=== PATIENT | female | born 1980 | race Caucasian/White ===

== ENCOUNTER 2019-03-17 17:24 | Emergency (ER) | payer BC ==
--- OUTSIDE RECORDS SUMMARY | 2019-03-17 17:26 | XMS REPORT ---
:1980 [facility] Address [address] [place] [address] Dr. Portillo. [address] [place] [id number] Care Team Providers Name Role Phone Unavailable Unavailable Unavailable Problems This patient has no known problems. Allergies, Adverse Reactions, Alerts This patient has no known allergies or adverse reactions. Medications This patient has no known medications.
[2019-03-17] MEDS ORDERED: dexAMETHasone 10 MG/ML VIAL ONE (18:33)
[2019-03-17] MEDS ORDERED: MORPHINE 4 MG/ML SYR ONE ×2 (18:34→20:11)
[2019-03-17] MEDS ORDERED: ONDANSETRON 4 MG/2 ML VIAL ONE (18:34)
[2019-03-17 18:40] LABS: Basophils % 0.8 % (0-1.3); MPV 7.6 fL (7.6-11.3); RBC Red Blood Cell Count 4.15 M/uL (3.86-4.86)
[2019-03-17] MEDS ORDERED: CLINDAMYCIN 600MG/D5W 600 MG/50 ML BAG IV ONE (19:09)
[2019-03-17 19:12] LABS: Potassium 3.3 mmol/L (3.5-5.1)
--- NOTE | 2019-03-17 20:00 | RAD REPORT ---
EXAM DESCRIPTION: CT - Soft Tissue Neck W/Contr CLINICAL HISTORY: right submandibular swelling and pain Pain and swelling to the neck COMPARISON: <Comparisons> TECHNIQUE All CT scans are performed using dose optimization technique as appropriate and may includ e automated exposure control or mA/KV adjustment according to patient size. FINDINGS: Inflammatory changes are present in the subcutaneous fat along the left aspect of the neck . The soft tissues surrounding the left parotid gland and submandibular glands appear edematous. Flui d is seen extending along the left aspect of the parapharyngeal fat with edematous fluid present with in the left piriform sinus. The left area epiglottic fold appears significantly thickened and edemato us. Multiple prominent lymph nodes are present along the jugular chain, greater on the left. The largest lymph node on the left measures 16 mm, however demonstrates a a reactive appearance. Mild edema is seen extending in the from the submental region inferiorly along the anterior strap mus cles which appear mildly inflamed. No drainable abscess collection seen. No prevertebral fluid collections. IMPRESSION: Significant inflammatory changes and edema along the left aspect of the face and neck, a ppearing to involve the left inferior parotid gland as well as the left submandibular gland. Fluid an d edema is seen extending inferiorly along the submental region and involving the anterior strap musc les. The inflammatory changes may be related to salivary gland inflammation. No drainable abscess see n. Fluid is seen the left extending along the left parapharyngeal space to the level of the left pirifor m sinus which appears fluid-filled. The left aryepiglottic fold is also thickened and likely inflamed .
[2019-03-17] MEDS ORDERED: KCL 20 MEQ/100 mL IVPB 20 MEQ/100 ML BAG IV ONE (21:22)
[2019-03-17] MEDS ORDERED: NA CHLORIDE 0.9% 1,000 ML ONE (21:45)
--- NOTE | 2019-03-17 21:59 | EDPHYS ---
Physician Documentation [facility] Name: Marysol Salcido Age: 38 yrs Sex: Female : 1980 Arrival Date: 03/17/2019 Time: 17:29 Bed 13 Private MD: Unknown, Unknown ED Physician Florencio Felix HPI: 03/17 18:06 This 38 yrs old Female presents to ER via Ambulatory with complaints of rn Facial Swelling, neck pain. 18:06 The patient has shortness of breath at rest. Onset: The symptoms/episode began/occurred rn this morning. Duration: The symptoms are continuous. Severity of symptoms: At their worst the symptoms were moderate in the emergency department the symptoms are unchanged. The patient has not experienced similar symptoms in the past. Reports seen today at urgent care, told maybe had mumps, sent for bloodwork and ultrasound, reports swelling got worse, feels pressure in neck and worried may effect her breathing. Not diabetic, no trauma, no recent neck or oral procedures. . 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 - Social history:: Smoking status: Patient/guardian denies using tobacco. - Ebola Screening: : No symptoms or risks identified at this time. - Family history:: not pertinent. - Hospitalizations: : No recent hospitalization is reported. ROS: 18:06 Constitutional: Negative for fever, chills, and weight loss, Eyes: Negative for injury, rn pain, redness, and discharge, ENT: Negative for injury Neck: + left neck swelling and pain Cardiovascular: Negative for chest pain, palpitations, and edema, Respiratory: Negative for shortness of breath, cough, wheezing, and pleuritic chest pain, Abdomen/GI: Negative for abdominal pain, nausea, vomiting, diarrhea, and constipation, MS/Extremity: Negative for injury and deformity, Skin: Negative for injury, rash, and discoloration, Neuro: Negative for headache, weakness, numbness, tingling, and seizure. Exam: 18:09 Constitutional: This is a well developed, well nourished patient who is awake, alert, rn and in no acute distress. Head/Face: Normocephalic, atraumatic. Eyes: Pupils equal round and reactive to light, extra-ocular motions intact. Lids and lashes normal. Conjunctiva and sclera are non-icteric and not injected. Cornea within normal limits. Periorbital areas with no swelling, redness, or edema. ENT: no intraoral swelling or erythema Neck: Trachea midline, + bilateral cervical LAD that is tender and more prominent on left side, floor of mouth soft and non-tender, no overlying skin changes Respiratory: No increased work of breathing, no retractions or nasal flaring. No stridor. Neuro: Awake and alert, GCS 15, oriented to person, place, time, and situation. Cranial nerves II-XII grossly intact. Motor strength 5/5 in all extremities. Sensory grossly intact. Cerebellar exam normal. Vital Signs: 17:43 BP 146 / 79; Pulse 105; Resp 16 S; Temp 97.8(TE); Pulse Ox 96% on R/A; Weight 81.65 kg aa5 (R); Height 5 ft. 2 in. (157.48 cm) (R); Pain 10/10; 18:55 BP 141 / 84; Pulse 98; Resp 17; Pulse Ox 96% on R/A; tw2 19:30 BP 127 / 95; Pulse 97; Resp 16; Pulse Ox 96% on R/A; rv 20:30 BP 133 / 86; Pulse 101; Resp 17; Pulse Ox 96% on R/A; rv 21:30 BP 138 / 97; Pulse 94; Resp 18; Pulse Ox 97% on R/A; rv 22:30 BP 124 / 60; Pulse 100; Resp 17; Pulse Ox 97% on R/A; rv 23:00 BP 137 / 96; Pulse 98; Resp 19; Pulse Ox 96% on R/A; rv 17:43 Body Mass Index 32.92 (81.65 kg, 157.48 cm) aa5 MDM: 17:57 Patient medically screened. rn 20:10 Data reviewed: vital signs, nurses notes, lab test result(s), radiologic studies, CT cp scan, I have discussed the patient's presentation/case with the attending Emergency Department Physician;. 03/17 18:06 Order name: CBC with Diff; Complete Time: 19:58 rn 03/17 18:06 Order name: Basic Metabolic Panel; Complete Time: 19:58 rn 03/17 19:57 Interpretation: Normal except: K 3.3; GLUC 111; GFR 57. cp 03/17 18:06 Order name: Blood Culture Adult (2) rn 03/17 18:06 Order name: Strep; Complete Time: 19:58 rn 03/17 18:09 Order name: Stevens Screen Profile; Complete Time: 19:58 rn 03/17 19:01 Order name: Throat Culture EDMS 03/17 18:06 Order name: IV Start; Complete Time: 18:26 rn 03/17 18:06 Order name: CT Soft Tissue Neck W/contr; Complete Time: 20:03 rn 03/17 18:06 Order name: NPO; Complete Time: 18:14 rn Administered Medications: 18:22 Drug: Zofran 4 mg Route: IVP; Site: right antecubital; tw2 18:52 Follow up: Response: No adverse reaction; Nausea is decreased tw2 18:25 Drug: morphine 4 mg Route: IVP; Site: right antecubital; tw2 18:51 Follow up: Response: No adverse reaction; Pain is unchanged, physician notified tw2 18:28 Drug: Decadron - Dexamethasone 10 mg Route: IVP; Site: right antecubital; tw2 18:51 Follow up: Response: No adverse reaction tw2 18:55 Drug: Clindamycin 600 mg Route: IVPB; Infused Over: 30 mins; Site: right antecubital; tw2 19:58 Follow up: IV Status: Completed infusion rv 19:59 Drug: morphine 4 mg Route: IVP; Site: right antecubital; rv 23:07 Follow up: Response: No adverse reaction; Marked relief of symptoms; Pain is decreased rv 21:10 Drug: Potassium Chloride 20 mEq Route: IV; Rate: calculated rate; Site: right rv antecubital; 23:06 Follow up: IV Status: Completed infusion rv Disposition: 03/17/19 21:57 Transfer ordered to [facility]. Diagnosis is Cellulitis and acute lymphangitis of face and neck. - Reason for transfer: Higher level of care. - Accepting physician is DR Marilyn Lam. - Condition is Stable. - Problem is new. - Symptoms have improved. Addendum: 03/19/2019 07:06 Co-signature as Attending Physician, Florencio Felix MD. r n Signatures: Dispatcher [employer] Florencio Gillespie MD MD rn Migdalia Woodward RN RN aa5 Alec Baum PA PA cp Rebeca Castillo RN RN tw2 Tyron Arriaga, RN RN rv Amirah Pinto RN RN ca1 Corrections: (The following items were deleted from the chart) 03/18 00:15 03/17 21:57 03/17/2019 21:57 Transfer ordered to [facility]. ca1 Diagnosis is Cellulitis and acute lymphangitis of face and neck. Reason for transfer: Higher level of care. Accepting physician is DR Marilyn Lam. Condition is Stable. Problem is new. Symptoms have improved. cp
--- NOTE | 2019-03-17 21:59 | ER ---
Nurse's Notes [facility] Name: Marysol Salcido Age: 38 yrs Sex: Female : 1980 Arrival Date: 03/17/2019 Time: 17:29 Bed 13 Private MD: Unknown, Unknown Diagnosis: Cellulitis and acute lymphangitis of face and neck Presentation: 03/17 17:41 Presenting complaint: states: "we were seen at urgent care this morning but her aa5 left jaw swelling is getting worse and they said to come here". Pt states "I am having trouble breathing because of all the pressure". Pt was diagnosed with Parotitis at urgent care. Transition of care: patient was not received from another setting of care. Onset of symptoms was March 17, 2019. Risk Assessment: Do you want to hurt yourself or someone else? Patient reports no desire to harm self or others. Initial Sepsis Screen: Does the patient meet any 2 criteria? Does the patient have a suspected source of infection? No. Patient's initial sepsis screen is negative. Care prior to arrival: None. 17:41 Acuity: STEPHANI 3 aa5 17:41 Method Of Arrival: Ambulatory aa5 Triage Assessment: 17:48 Respiratory: Reports shortness of breath Onset: The symptoms/episode began/occurred tw2 this morning. 17:50 General: Appears in no apparent distress. Respiratory: the patient has mild shortness tw2 of breath. 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 - Social history:: Smoking status: Patient/guardian denies using tobacco. - Ebola Screening: : No symptoms or risks identified at this time. - Family history:: not pertinent. - Hospitalizations: : No recent hospitalization is reported. Screenin:47 Abuse screen: Denies threats or abuse. Nutritional screening: No deficits noted. tw2 Tuberculosis screening: No symptoms or risk factors identified. Fall Risk None identified. Assessment: 17:48 Respiratory: Airway is patent Respiratory effort is even, unlabored, Respiratory tw2 pattern is regular, symmetrical. 17:50 General: Appears uncomfortable, Behavior is calm, cooperative, appropriate for age. tw2 Pain: Complains of pain in left jaw and left mandible. Neuro: Level of Consciousness is awake, alert, obeys commands, Oriented to person, place, time, situation. Cardiovascular: Heart tones S1 S2 Patient's skin is warm and dry. Rhythm is sinus rhythm. Respiratory: Airway is patent Respiratory effort is even, unlabored, Respiratory pattern is regular, symmetrical, Breath sounds are clear bilaterally. GI: No signs and/or symptoms were reported involving the gastrointestinal system. Abdomen is flat, non-distended, Bowel sounds present X 4 quads. : No signs and/or symptoms were reported regarding the genitourinary system. EENT: Reports pain in left ear and left mandible. Derm: No signs and/or symptoms reported regarding the dermatologic system. Musculoskeletal: Range of motion: intact in all extremities. 18:56 Reassessment: Patient appears in no apparent distress at this time. No changes from tw2 previously documented assessment. Patient and/or family updated on plan of care and expected duration. Pain level reassessed. Patient is alert, oriented x 3, equal unlabored respirations, skin warm/dry/pink. 19:00 Reassessment: Patient appears in no apparent distress at this time. Patient and/or rv family updated on plan of care and expected duration. Pain level reassessed. Patient is alert, oriented x 3, equal unlabored respirations, skin warm/dry/pink. 22:00 Reassessment: Patient appears in no apparent distress at this time. Patient and/or rv family updated on plan of care and expected duration. Pain level reassessed. Patient is alert, oriented x 3, equal unlabored respirations, skin warm/dry/pink. patient is more comfortable after the pain medication. pain decreased to 6/10. report called to Patrick Truong of [facility]. awaiting transport team. 23:00 Reassessment: Patient appears in no apparent distress at this time. Patient and/or rv family updated on plan of care and expected duration. Pain level reassessed. Patient is alert, oriented x 3, equal unlabored respirations, skin warm/dry/pink. patient is for transfer. patient and family is advised. awaiting call from receiving facility. Vital Signs: 17:43 BP 146 / 79; Pulse 105; Resp 16 S; Temp 97.8(TE); Pulse Ox 96% on R/A; Weight 81.65 kg aa5 (R); Height 5 ft. 2 in. (157.48 cm) (R); Pain 10/10; 18:55 BP 141 / 84; Pulse 98; Resp 17; Pulse Ox 96% on R/A; tw2 19:30 BP 127 / 95; Pulse 97; Resp 16; Pulse Ox 96% on R/A; rv 20:30 BP 133 / 86; Pulse 101; Resp 17; Pulse Ox 96% on R/A; rv 21:30 BP 138 / 97; Pulse 94; Resp 18; Pulse Ox 97% on R/A; rv 22:30 BP 124 / 60; Pulse 100; Resp 17; Pulse Ox 97% on R/A; rv 23:00 BP 137 / 96; Pulse 98; Resp 19; Pulse Ox 96% on R/A; rv 17:43 Body Mass Index 32.92 (81.65 kg, 157.48 cm) aa5 ED Course: 17:29 Patient arrived in ED. ag5 17:29 Unknown, Unknown is Private Physician. ag5 17:40 Arm band placed on. aa5 17:42 Triage completed. aa5 17:47 Rebeca Castillo, RN is Primary Nurse. tw2 17:47 Bed in low position. Call light in reach. Adult w/ patient. Pulse ox on. NIBP on. tw2 17:57 Florencio Felix MD is Attending Physician. rn 18:09 Radiology exam delayed due to lab results not completed at this time. (BUN/Creatinine) vm2 IV insertion attempt and/or patient not having appropriate IV at this time. 18:16 Alec Baum PA is PHCP. cp 18:20 Inserted saline lock: 18 gauge in right antecubital area, using aseptic technique. rv Blood collected. 18:20 Initial lab(s) drawn, by me, sent to lab. First set of blood cultures drawn by me. rv 18:50 Blood Culture Adult (2) Sent. tw2 18:59 Report given to JEAN MARIE Driver. tw2 19:48 CT Soft Tissue Neck W/contr In Process Unspecified. EDMS 23:12 No provider procedures requiring assistance completed. Patient transferred, IV remains rv in place. Administered Medications: 18:22 Drug: Zofran 4 mg Route: IVP; Site: right antecubital; tw2 18:52 Follow up: Response: No adverse reaction; Nausea is decreased tw2 18:25 Drug: morphine 4 mg Route: IVP; Site: right antecubital; tw2 18:51 Follow up: Response: No adverse reaction; Pain is unchanged, physician notified tw2 18:28 Drug: Decadron - Dexamethasone 10 mg Route: IVP; Site: right antecubital; tw2 18:51 Follow up: Response: No adverse reaction tw2 18:55 Drug: Clindamycin 600 mg Route: IVPB; Infused Over: 30 mins; Site: right antecubital; tw2 19:58 Follow up: IV Status: Completed infusion rv 19:59 Drug: morphine 4 mg Route: IVP; Site: right antecubital; rv 23:07 Follow up: Response: No adverse reaction; Marked relief of symptoms; Pain is decreased rv 21:10 Drug: Potassium Chloride 20 mEq Route: IV; Rate: calculated rate; Site: right rv antecubital; 23:06 Follow up: IV Status: Completed infusion rv Outcome: 21:57 ER care complete, transfer ordered by . cp 23:13 Transferred by ground EMS to [facility], Transfer form completed. X-rays rv sent w/ patient. 23:13 Condition: stable 23:13 Instructed on the need for transfer. 03/18 00:15 Patient left the ED. ca1 Signatures: Dispatcher [employer] EDMS Florencio Felix MD MD rn Calderon, Audri RN RN aa5 Alec Baum PA PA cp Rebeca Castillo RN RN tw2 Maday Palacio 2 Tyron Arriaga RN RN rv Amirah Pinto RN RN ca1 Dara Paris ag5 Corrections: (The following items were deleted from the chart) 03/17 17:42 17:41 Presenting complaint: states: "we were seen at urgent care this morning aa5 but her left jaw swelling is getting worse and they said to come here". Pt states "I am having trouble breathing because of all the pressure" aa5 23:12 22:00 Reassessment: Patient appears in no apparent distress at this time. Patient rv and/or family updated on plan of care and expected duration. Pain level reassessed. Patient is alert, oriented x 3, equal unlabored respirations, skin warm/dry/pink. patient is for transfer. patient and family is advised. awaiting call from receiving facility. rv
== END 2019-03-18 00:15 | disposition short-term general hospital (02) ==
LOC: ER 17:24
DX: L03.211 Cellulitis of face (principal); L03.221 Cellulitis of neck
CPT/HCPCS: 36415; 70491; 80048; 85025; 86308; 87040; 87070; 87081; 96365; 96366; 96367; 96375; 99285; J1100; J2405; J7030; Q9967

== ENCOUNTER 2019-05-02 16:12 | Emergency (ER) | payer BC ==
--- OUTSIDE RECORDS SUMMARY | 2019-05-02 16:15 | XMS REPORT | Clinical Summary ---
:1980 Author Organization [facility] Address [address] [place] [address] Care Team Providers Name Role Phone Asked, No Pcp Primary Care Provider Unavailable Allergies Active Allergy Reactions Severity Noted Date Comments Morphine Medium 03/18/2019 Medications Medication Sig Dispensed Refills Start End Date Status Date clonAZEPAM Take 2 mg by 0 Active (KlonoPIN) 2 MG mouth 2 (two) tablet times a day. desvenlafaxine 50 Take 50 mg by 0 Active mg tablet extended mouth nightly. release 24hr lamoTRIgine Take 150 mg by 0 Active (LaMICtal) 150 MG mouth nightly. tablet traZODone Take 150 mg by 0 Active (DESYREL) 150 MG mouth nightly. tablet valACYclovir Take 1,000 mg by 0 Active (VALTREX) 1000 MG mouth daily as tablet needed. acetaminophen-code Take 1 tablet by 0 Active ine (TYLENOL WITH mouth every 6 CODEINE #3) 300-30 (six) hours as mg per tablet needed for moderate pain. clonAZEPAM Take 4 mg by 0 03/21/20 Discontinued (KlonoPIN) 2 MG mouth every 19 (Med List tablet morning. Cleanup) lithium 300 MG Take 300 mg by 0 04/01/20 Discontinued capsule mouth nightly. 19 (Stop Taking at Discharge) amoxicillin-pot Take 1 tablet 10 tablet 0 04/01/20 Discontinued clavulanate (500 mg total) 9 19 (AUGMENTIN) by mouth 2 (two) 500-125 mg per times a day for tablet 5 days. amoxicillin-pot Take 1 tablet 14 tablet 0 04/08/20 clavulanate (500 mg total) 9 19 (AUGMENTIN) by mouth 2 (two) 500-125 mg per times a day for tablet 7 days. celecoxib Take 1 capsule 28 capsule 0 04/15/20 (CeleBREX) 100 MG (100 mg total) 9 19 capsule by mouth 2 (two) times a day for 14 days. docusate sodium Take 1 capsule 30 capsule 0 05/01/20 (COLACE) 100 MG (100 mg total) 9 19 capsule by mouth 2 (two) times a day as needed for constipation for up to 30 days. famotidine Take 1 tablet 60 tablet 0 05/01/20 (PEPCID) 20 MG (20 mg total) by 9 19 tablet mouth 2 (two) times a day for 30 days. fluconazole Take 1 tablet 5 tablet 0 04/06/20 (DIFLUCAN) 100 MG (100 mg total) 9 19 tablet by mouth daily for 5 days. metFORMIN Take 1 tablet 60 tablet 0 05/01/20 (GLUCOPHAGE) 500 (500 mg total) 9 19 mg tablet by mouth 2 (two) times a day with meals for 30 days. nystatin Take 5 mL by 60 mL 0 04/06/20 (MYCOSTATIN) mouth 3 (three) 9 19 100,000 unit/mL times a day for suspension 5 days. Swish in mouth Active Problems Problem Noted Date Sialoadenitis 03/21/2019 Airway compromise 03/21/2019 Salivary gland infection 03/19/2019 Acute sialoadenitis 03/18/2019 Encounters Date Type Specialty Care Team Description 03/21/2019 - Hospital Encounter General Internal Balaji Fuentes Sialoadenitis (Primary 04/01/2019 Medicine MD Asa Dx) Maycol Morales DO Joglekar, Swati, MD 03/21/2019 Travel 03/18/2019 - Hospital Encounter General Internal Sandulache, Acute sialoadenitis (Primary Dx); 03/20/2019 Medicine Beck Facial swelling MD Kevin Carrington Jesus Manuel, MD Joglekar, Swati, MD McCartan, James Arthur, DO 03/18/2019 Travel 03/17/2019 Intake Access N/A after 05/01/2018 Social History Tobacco Use Types Packs/Day Years Used Date Passive Smoke Exposure - Never Smoker Smokeless Tobacco: Never Used Alcohol Use Drinks/Week oz/Week Comments Never Alcohol Habits Answer Date Recorded How often do you have a drink containing alcohol? Never 03/18/2019 How many drinks containing alcohol do you have on a typical Not asked day when you are drinking? How often do you have six or more drinks on one occasion? Not asked Sex Assigned at Date Recorded Not on file Job Start Date Occupation Industry Not on file Not on file Not on file Travel History Travel Start Travel End No recent travel history available. Last Filed Vital Signs Vital Sign Reading Time Taken Comments Blood Pressure 96/64 04/01/2019 7:52 AM CDT Pulse 93 04/01/2019 7:52 AM CDT Temperature 36.3 C (97.4 F) 04/01/2019 7:52 AM CDT Respiratory Rate 18 04/01/2019 7:52 AM CDT Oxygen Saturation 96% 04/01/2019 7:52 AM CDT Inhaled Oxygen Concentration - - Weight 81.6 kg (180 lb) 03/21/2019 10:43 AM CDT Height 157.5 cm (5' 2") 03/21/2019 10:43 AM CDT Body Mass Index 32.92 03/21/2019 10:43 AM CDT Plan of Treatment Health Maintenance Due Date Last Done Comments CERVICAL CANCER SCREENING 12/24/2003 INFLUENZA VACCINE 03/27/2019 Procedures Procedure Name Priority Date/Time Associated Comments Diagnosis POC GLUCOSE Routine 03/30/2019 6:54 Results for this PM CDT procedure are in the results section. HIV AG/AB COMBINATION Routine 03/30/2019 9:55 Results for this AM CDT procedure are in the results section. POC GLUCOSE Routine 03/30/2019 9:38 Results for this AM CDT procedure are in the results section. ESTIMATED GFR Routine 03/30/2019 4:00 Results for this AM CDT procedure are in the results section. COMPREHENSIVE METABOLIC Routine 03/30/2019 4:00 Results for this PANEL AM CDT procedure are in the results section. HC COMPLETE BLD COUNT Routine 03/30/2019 3:40 Results for this W/AUTO DIFF AM CDT procedure are in the results section. POC GLUCOSE Routine 03/29/2019 5:42 Results for this PM CDT procedure are in the results section. HC COMPLETE BLD COUNT Routine 03/29/2019 5:40 Results for this W/AUTO DIFF AM CDT procedure are in the results section. FL MODIFIED BARIUM Routine 03/28/2019 10:42 Results for this SWALLOW AM CDT procedure are in the results section. ESTIMATED GFR Routine 03/28/2019 5:33 Results for this AM CDT procedure are in the results section. SEDIMENTATION RATE Routine 03/28/2019 5:33 Results for this AM CDT procedure are in the results section. C-REACTIVE PROTEIN Routine 03/28/2019 5:33 Results for this AM CDT procedure are in the results section. SS-B ANTIBODY Routine 03/28/2019 5:33 Results for this AM CDT procedure are in the results section. SS-A ANTIBODY Routine 03/28/2019 5:33 Results for this AM CDT procedure are in the results section. RHEUMATOID FACTOR Routine 03/28/2019 5:33 Results for this AM CDT procedure are in the results section. CRISTINA Routine 03/28/2019 5:33 Results for this AM CDT procedure are in the results section. BASIC METABOLIC PANEL Routine 03/28/2019 5:33 Results for this AM CDT procedure are in the results section. POC GLUCOSE Routine 03/27/2019 5:04 Results for this PM CDT procedure are in the results section. US SOFT TISSUE HEAD STAT 03/27/2019 1:45 Results for this NECK PM CDT procedure are in the results section. ESTIMATED GFR Routine 03/26/2019 4:50 Results for this AM CDT procedure are in the results section. BASIC METABOLIC PANEL Routine 03/26/2019 4:50 Results for this AM CDT procedure are in the results section. POC GLUCOSE Routine 03/23/2019 9:04 Results for this PM CDT procedure are in the results section. ESTIMATED GFR Routine 03/23/2019 5:30 Results for this AM CDT procedure are in the results section. BASIC METABOLIC PANEL Routine 03/23/2019 5:30 Results for this AM CDT procedure are in the results section. FIBRINOGEN Routine 03/22/2019 12:35 Results for this AM CDT procedure are in the results section. PARTIAL THROMBOPLASTIN Routine 03/22/2019 12:35 Results for this TIME (PTT) AM CDT procedure are in the results section. PROTHROMBIN TIME WITH Routine 03/22/2019 12:35 Results for this INR AM CDT procedure are in the results section. ESTIMATED GFR Routine 03/22/2019 12:35 Results for this AM CDT procedure are in the results section. TYPE AND SCREEN Routine 03/22/2019 12:35 Results for this AM CDT procedure are in the results section. PHOSPHORUS LEVEL Routine 03/22/2019 12:35 Results for this AM CDT procedure are in the results section. MAGNESIUM LEVEL Routine 03/22/2019 12:35 Results for this AM CDT procedure are in the results section. CBC WITH PLATELET AND Routine 03/22/2019 12:35 Results for this DIFFERENTIAL AM CDT procedure are in the results section. BASIC METABOLIC PANEL Routine 03/22/2019 12:35 Results for this AM CDT procedure are in the results section. CT SOFT TISSUE NECK W STAT 03/21/2019 2:47 Results for this CONTRAST PM CDT procedure are in the results section. ESTIMATED GFR STAT 03/21/2019 1:08 Results for this PM CDT procedure are in the results section. BASIC METABOLIC PANEL STAT 03/21/2019 1:08 Results for this PM CDT procedure are in the results section. HC COMPLETE BLD COUNT STAT 03/21/2019 1:08 Results for this W/AUTO DIFF PM CDT procedure are in the results section. HC COMPLETE BLD COUNT STAT 03/21/2019 10:50 Results for this W/AUTO DIFF AM CDT procedure are in the results section. AR CRITICAL CARE, E/M Routine 03/21/2019 10:40 Results for this 30-74 MINUTES AM CDT procedure are in the results section. AMYLASE LEVEL Routine 03/18/2019 2:22 Results for this PM CDT procedure are in the results section. MUMPS VIRUS ANTIBODY, Routine 03/18/2019 2:22 Results for this IGG PM CDT procedure are in the results section. MUMPS VIRUS ANTIBODY, Routine 03/18/2019 2:22 Results for this IGM PM CDT procedure are in the results section. LITHIUM LEVEL STAT 03/18/2019 2:22 Results for this PM CDT procedure are in the results section. ESTIMATED GFR STAT 03/18/2019 1:59 Results for this AM CDT procedure are in the results section. PARTIAL THROMBOPLASTIN STAT 03/18/2019 1:59 Results for this TIME (PTT) AM CDT procedure are in the results section. PROTHROMBIN TIME WITH STAT 03/18/2019 1:59 Results for this INR AM CDT procedure are in the results section. TYPE AND SCREEN Routine 03/18/2019 1:59 Results for this AM CDT procedure are in the results section. BASIC METABOLIC PANEL STAT 03/18/2019 1:59 Results for this AM CDT procedure are in the results section. HC COMPLETE BLD COUNT STAT 03/18/2019 1:59 Results for this W/AUTO DIFF AM CDT procedure are in the results section. after 05/01/2018 Results POC glucose (03/30/2019 6:54 PM CDT)Only the most recent of5 resultswithin the time period is included. [facility] POC glucose 124 (H) 65 - 99 mg/dL [facility] Comment: HOSPITAL [facility] Notified RN Meter ID: [id number] [employer] Education Teacher: [facility] Liliana Calderon Specimen Performing Organization Address City/[facility] Cent[facility] Phone Number [facility] DEPARTMENT OF PATHOLOGY AND [address] [place] [address] HIV Ag/Ab combination (03/30/2019 9:55 AM CDT) [facility] HIV Ag/Ab combination Non-reactive Non-reactive [facility] Specimen Blood Performing Organization Address City/[facility] Phone Number [facility] DEPARTMENT OF PATHOLOGY AND [address] [place] [address] Estimated GFR (03/30/2019 4:00 AM CDT)Only the most recent of7 resultswithin the time period is included. [facility] Estimated GFR >=90 mL/min/1.73 [facility] Comment: HOSPITAL CatergoryUnitsInterpretation G1 >=90 Normal or high G2 60-89Mildly decreased [id number] to moderately decreased G0t29-99Aggfucctey to severely decreased G4 15-29Severely decreased G5 <15Kidney failure The eGFR was calculated using the Chronic Kidney Disease Epidemiology Collaboration (CKD-EPI) equation. Interpretation is based on recommendations of the National Kidney Foundation-Kidney Disease Outcomes Quality Initiative (NKF-KDOQI) published in 2014. Specimen Plasma specimen Performing Organization Address City/[facility] Centercode Phone Number [facility] DEPARTMENT OF PATHOLOGY AND [address] [place], [place] [phone] Comprehensive metabolic panel (03/30/2019 4:00 AM CDT) Pathologist [facility] Sodium 137 135 - 148 [facility] mEq/L [facility] Potassium 5.0 3.5 - 5.0 [facility] mEq/L [facility] Chloride 94 (L) 98 - 112 mEq/L [facility] CO2 32 (H) 24 - 31 mEq/L [facility] Anion gap 11@ANIO 7 - 15 mEq/L [facility] BUN 22 (H) 6 - 20 mg/dL [facility] Creatinine 0.76 0.50 - 0.90 [facility] mg/dL [facility] Glucose 111 (H) 65 - 99 mg/dL [facility] Calcium 10.0 8.3 - 10.2 [facility] mg/dL [facility] Protein 6.7 6.3 - 8.3 g/dL [facility] Comment: HOSPITAL [place] 4.6-7.0 g/dL 1 week 4.4-7.6 g/dL 7 months-1year5.1-7.3 g/dL 1-2 years5.6-7.5 g/dL >3 years6.0-8.0 g/dL 18-150 6.3-8.3 g/dL Albumin 3.4 (L) 3.5 - 5.0 g/dL [facility] A/G ratio 1.0 0.7 - 3.8 [facility] Alkaline phosphatase 61 35 - 104 U/L [facility] AST 25 10 - 35 U/L [facility] ALT 88 (H) 5 - 50 U/L [facility] Total bilirubin 0.3 0.0 - 1.2 [facility] mg/dL [facility] Specimen Plasma specimen Performing Organization Address City/State/Zipcode Phone Number [facility] DEPARTMENT OF PATHOLOGY AND [address] [place] [address] GENOM[address] MEDICINE [address] [address] CBC with platelet and differential (03/30/2019 3:40 AM CDT)Only the most recent of6 resultswithin the time period is included. WBC 15.17 (H) 4.50 - 11.00 [facility] k/uL HOSPITAL RBC 3.96 (L) 4.20 - 5.50 [facility] m/uL [facility] HGB 13.0 12.0 - 16.0 [facility] g/dL HOSPITAL HCT 41.9 37.0 - 47.0 % [facility] MCV 105.8 (H) 82.0 - 100.0 [facility] [place] MCH 32.8 27.0 - 34.0 pg [facility] MCHC 31.0 31.0 - 37.0 [facility] g/dL [facility] RDW - SD 50.5 37.0 - 55.0 [facility] MPV 9.6 8.8 - 13.2 [facility] Platelet count 232 150 - 400 k/uL [facility] Nucleated RBC 0.00 /100 WBC [facility] Neutrophils 77.7 (H) 39.0 - 69.0 % [facility] Lymphocytes 12.5 (L) 25.0 - 45.0 % [facility] Monocytes 6.1 0.0 - 10.0 % [facility] Eosinophils 0.1 0.0 - 5.0 % [facility] Basophils 0.2 0.0 - 1.0 % [facility] Immature granulocytes 3.4 0.0 - 1.0 % [facility] (H)Comment: HOSPITAL "Immature granulocytes" (promyelocytes , myelocytes, metamyelocytes ) Specimen Blood Performing Organization Address City/State/Zipcode Phone Number [facility] DEPARTMENT OF PATHOLOGY AND [address] [place] [address] GENOMIC MEDICINE [address] [address] [place] Modified Barium Swallow (03/28/2019 10:42 AM CDT) Specimen Narrative Performed At EXAMINATION:[place] MODIFIED BARIUM SWALLOW [facility] CLINICAL HISTORY:Aspirationknown or suspected COMPARISON:None. Fluoroscopy time: 0.5 minutes Fluoroscopic images: 540 FINDINGS: The patient was given multiple consistencies of barium. The swallowing act was normal. There was no evidence of aspiration or penetration. IMPRESSION: Normal modified barium swallow. Please refer to Speech Pathology report for further details. [facility]-[id number] Procedure Note Interface, Radiology Results Incoming - 03/28/2019 10:56 AM CDT EXAMINATION: [place] MODIFIED BARIUM SWALLOW CLINICAL HISTORY: Aspiration known or suspected COMPARISON: None. Fluoroscopy time: 0.5 minutes Fluoroscopic images: 540 FINDINGS: The patient was given multiple consistencies of barium. The swallowing act was normal. There was no evidence of aspiration or penetration. IMPRESSION: Normal modified barium swallow. Please refer to Speech Pathology report for further details. [facility]-[id number] Performing Organization Address City/State/Zipcode Phone Number [address] [address] SS-B antibody (03/28/2019 5:33 AM CDT) Sjogren's SS-B <0.2 0.0 - 0.9 [facility] antibody [facility] SS-B antibody Negative [facility] interp Comment: [facility] SS-B/La antibody is seen in patients with Sjogren syndrome, but may also be HOSPITAL positive with systemic lupus erythematosus (SLE), and systemic sclerosis. Specimen Serum Performing Organization Address City/State/Zipcode Phone Number [facility] DEPARTMENT OF PATHOLOGY AND [address] [place] [phone] [place] [phone] SS-A antibody (03/28/2019 5:33 AM CDT) Sjogren's SS-A <0.2 0.0 - 0.9 [facility] antibody [facility] SS-A antibody Negative [facility] interp Comment: [facility] SS-A antibody is sensitive for Sjogren's syndrome, but may also be positive HOSPITAL with systemic lupus erythematosus (SLE), and systemic sclerosis. Specimen Serum Performing Organization Address City/[facility]/Zipcode Phone Number [facility] DEPARTMENT OF PATHOLOGY AND [address] [place] [phone] [address] Sedimentation rate (03/28/2019 5:33 AM CDT) Sedimentation rate 5 0 - 20 mm/hr [facility] Specimen Blood Performing Organization Address City/State/Zipcode Phone Number [facility] DEPARTMENT OF PATHOLOGY AND [address] [place] [phone] [address] Rheumatoid factor (03/28/2019 5:33 AM CDT) Rheumatoid factor 13 0 - 13 IU/mL [facility] Specimen Plasma specimen Performing Organization Address City/State/Zipcode Phone Number [facility] DEPARTMENT OF PATHOLOGY AND [address] [place] [phone] [address] C-reactive protein (03/28/2019 5:33 AM CDT) Pathologist [facility] CRP <0.30 0.00 - 0.50 mg/dL [facility] Specimen Plasma specimen Performing Organization Address City/State/[facility]ode Phone Number [facility] DEPARTMENT OF PATHOLOGY AND [address] [place] [phone] [place] [phone] CRISTINA (03/28/2019 5:33 AM CDT) Pathologist [facility] CRISTINA screen Negative Negative [facility] Specimen Blood Performing Organization Address City/[facility]ercode Phone Number [facility] DEPARTMENT OF PATHOLOGY AND [address] [place] [phone] Basic metabolic panel (03/28/2019 5:33 AM CDT)Only the most recent of6 resultswithin the time period is included. [facility] Sodium 141 135 - 148 mEq/L [facility] Potassium 4.3 3.5 - 5.0 mEq/L [facility] Chloride 97 (L) 98 - 112 mEq/L [facility] CO2 28 24 - 31 mEq/L [facility] Anion gap 16@ANIO (H) 7 - 15 mEq/L [facility] BUN 17 6 - 20 mg/dL [facility] Creatinine 0.76 0.50 - 0.90 mg/dL [facility] Glucose 154 (H) 65 - 99 mg/dL [facility] Calcium 9.4 8.3 - 10.2 mg/dL [facility] Specimen Plasma specimen Performing Organization Address City/[facility]ercode Phone Number [facility] DEPARTMENT OF PATHOLOGY AND [address] [place] [phone] [place] Soft Tissue Head Neck (03/27/2019 1:45 PM CDT) Specimen Narrative Performed At Examination: US SOFT TISSUE HEAD NECK [facility] Clinical history: Salivary gland swelling Comparison: None Impression: Transverse and longitudinal sonographic images were obtained through the anterior neck. 1. The right lobe of the thyroid measures 3.7 x 1.4 x 1.6 cm and left lobe 3.8 x 1.0 x 1.5 cm. The isthmus measures 0.2 cm in AP dimension. 2. The thyroid gland demonstrates a mildly heterogeneous echotexture without focal cystic or solid nodule. 3. Homogeneous hyperechoic enlargement of the submandibular glands bilaterally is similar to the recent CT neck and nonspecific. Because of the overall size, the entire glands cannot be measured and 1 [id number]. The right submandibular gland measures approximately 6.0 x 2.2 x 5.4 cm and left 5.3 x 1.8 x 4.4 cm. 4. A few small nonenlarged lymph nodes are present within the anterior neck bilaterally. [facility]-[id number] Procedure Note Interface, Radiology Results Incoming - 03/27/2019 3:07 PM CDT Examination: US SOFT TISSUE HEAD NECK Clinical history: Salivary gland swelling Comparison: None Impression: Transverse and longitudinal sonographic images were obtained through the anterior neck. 1. The right lobe of the thyroid measures 3.7 x 1.4 x 1.6 cm and left lobe 3.8 x 1.0 x 1.5 cm. The isthmus measures 0.2 cm in AP dimension. 2. The thyroid gland demonstrates a mildly heterogeneous echotexture without focal cystic or solid nodule. 3. Homogeneous hyperechoic enlargement of the submandibular glands bilaterally is similar to the recent CT neck and nonspecific. Because of the overall size, the entire glands cannot be measured and 1 [id number]. The right submandibular gland measures approximately 6.0 x 2.2 x 5.4 cm and left 5.3 x 1.8 x 4.4 cm. 4. A few small nonenlarged lymph nodes are present within the anterior neck bilaterally. [facility]-[id number] Performing Organization Address City/State/[facility] Centercode Phone Number [facility] [address] [place] [address] Partial thromboplastin time, activated (03/22/2019 12:35 AM CDT)Only the most recent of2 resultswithin the time period is included. PTT 27.1 23.0 - 36.0 [facility] Comment: [facility] HOSPITAL PTT therapeutic range for unfractionated heparin is 61.0-112.0 seconds which corresponds to Anti-Xa 0.3-0.7 U/ml. Specimen Blood Performing Organization Address City/[facility] Centercode Phone Number [facility] DEPARTMENT OF PATHOLOGY AND [address] [place] [phone] [place] [phone] Prothrombin time with INR (03/22/2019 12:35 AM CDT)Only the most recent of2 resultswithin the time period is included. Prothrombin time 12.8 11.5 - 14.5 [facility] INR 1.0 [facility] Comment: [facility] Normalized Ratio (INR) is a therapeutic HOSPITAL monitoring tool for patients who are stable on oral anticoagulant therapy. An INR of 2.0-3.0 is suggested for deep vein thrombosis/pulmonary embolism. Specimen Blood Performing Organization Address City/[facility]/Zipcode Phone Number [facility] DEPARTMENT OF PATHOLOGY AND [address] [place] [phone] [place] [phone] Fibrinogen (03/22/2019 12:35 AM CDT) Fibrinogen 415 200 - 450 mg/dL [facility] Specimen Blood Performing Organization Address City/[facility] Centercode Phone Number [facility] DEPARTMENT OF PATHOLOGY AND [address] [place] [phone] [place] [phone] Type and screen (03/22/2019 12:35 AM CDT)Only the most recent of2 resultswithin the time period is included. ABO grouping O [facility] Rh type POS [facility] Antibody screen (gel) NEG [facility] Specimen Blood Performing Organization Address City/[facility]/Zipcode Phone Number [facility] DEPARTMENT OF PATHOLOGY AND [address] [place] [phone] [address] Phosphorus level (03/22/2019 12:35 AM CDT) Phosphorus 3.8 2.4 - 4.5 mg/dL [facility] Specimen Plasma specimen Performing Organization Address City/[facility]/Zipcode Phone Number [facility] DEPARTMENT OF PATHOLOGY AND [address] [place] [id number] [address] Magnesium level (03/22/2019 12:35 AM CDT) Magnesium 2.3 1.6 - 2.6 mg/dL [facility] Specimen Plasma specimen Performing Organization Address City/State/Zipcode Phone Number [facility] DEPARTMENT OF PATHOLOGY AND [address] [place] [address] GENOMIC MEDICINE [facility] [address] [place] [address] CT Soft Tissue Neck W Contrast (03/21/2019 2:47 PM CDT) Specimen Narrative Performed At EXAMINATION: CT SOFT TISSUE NECK W CONTRAST [facility] CLINICAL HISTORY: sialoadenitis COMPARISON:None TECHNIQUE: Postcontrast enhanced imaging through the neck was performed from the upper chest through the skull base with coronal and sagittal reconstructed images.CT imaging was performed with iterative reconstruction technique and/or automated exposure control to reduce radiation dose. FINDINGS: There is diffuse enhancement and enlargement of the bilateral submandibular glands with surrounding fat stranding. Findings suggest infection/inflammation of the salivary glands. Correlate for etiology. The parotid glands are normal in morphology. There are some scattered lymph nodes in the neck which are reactive in appearance. There is increased enhancement in the bilateral tonsillar fossa regions suggesting inflammatory/infectious changes in these areas. Correlate for infection/inflammation in the tonsillar fossa and tongue base. There is edema and fluid noted extending throughout the parapharyngeal fat and edema noted in the right epiglottis and right supraglottic soft tissue hypopharyngeal wall. There is prominent fat stranding throughout these areas of the deep neck fractures around the hypopharynx, bilaterally. Finding suggests a diffuse infectious/inflammatory process involving the bilateral tonsillar fossa, submandibular glands, lower parapharyngeal soft tissues and right supraglottic and epiglottis haynes. Upper mediastinum is intact. Visualized lung apices are clear. Osseous structures are intact. Prevertebral soft tissues are within normal limits. Thyroid gland is normal. Skull base is intact. Orbits are intact. Sinuses are clear. IMPRESSION: Findings suggest diffuse infection or inflammation involving the salivary glands, lower parapharyngeal soft tissues, right epiglottis wall and pharyngeal wall and tonsillar fossa. Due to the multiple compartmental involvement of the fat stranding and edema recommend close clinical supervision. The airway is involved but still remains patent at this time. However due to the edema on the right epiglottis and supraglottic soft tissues on the right close monitoring will be needed. There is no loculated abscess or mass appreciated. Findings were discussed with the charge nurse, Larisa at 03/21/2019 2:56 PM who verbalized understanding. [facility]-[id number] Procedure Note Hm Interface, Radiology Results Incoming - 03/21/2019 3:01 PM CDT EXAMINATION: CT SOFT TISSUE NECK W CONTRAST CLINICAL HISTORY: sialoadenitis COMPARISON: None TECHNIQUE: Postcontrast enhanced imaging through the neck was performed from the upper chest through the skull base with coronal and sagittal reconstructed images. CT imaging was performed with iterative reconstruction technique and/ or automated exposure control to reduce radiation dose. FINDINGS: There is diffuse enhancement and enlargement of the bilateral submandibular glands with surrounding fat stranding. Findings suggest infection/inflammation of the salivary glands. Correlate for etiology. The parotid glands are normal in morphology. There are some scattered lymph nodes in the neck which are reactive in appearance. There is increased enhancement in the bilateral tonsillar fossa regions suggesting inflammatory/infectious changes in these areas. Correlate for infection/inflammation in the tonsillar fossa and tongue base. There is edema and fluid noted extending throughout the parapharyngeal fat and edema noted in the right epiglottis and right supraglottic soft tissue hypopharyngeal wall. There is prominent fat stranding throughout these areas of the deep neck fractures around the hypopharynx, bilaterally. Finding suggests a diffuse infectious/inflammatory process involving the bilateral tonsillar fossa, submandibular glands, lower parapharyngeal soft tissues and right supraglottic and epiglottis haynes. Upper mediastinum is intact. Visualized lung apices are clear. Osseous structures are intact. Prevertebral soft tissues are within normal limits. Thyroid gland is normal. Skull base is intact. Orbits are intact. Sinuses are clear. IMPRESSION: Findings suggest diffuse infection or inflammation involving the salivary glands, lower parapharyngeal soft tissues, right epiglottis wall and pharyngeal wall and tonsillar fossa. Due to the multiple compartmental involvement of the fat stranding and edema recommend close clinical supervision. The airway is involved but still remains patent at this time. However due to the edema on the right epiglottis and supraglottic soft tissues on the right close monitoring will be needed. There is no loculated abscess or mass appreciated. Findings were discussed with the charge nurseLarisa at 03/21/2019 2:56 PM who verbalized understanding. [facility]-[id number] Performing Organization Address City/[facility]/Zipcode Phone Number [facility] [address] [place] [address] CRITICAL CARE (03/21/2019 10:40 AM CDT) Narrative Performed At Balaji Fuentes MD 03/22/20196:51 AM Critical Care Performed by: Balaji Fuentes MD Authorized by: Balaji Fuentes MD Critical care provider statement: Critical care time (minutes):40 Critical care time was exclusive of:Separately billable procedures and treating other patients Critical care was necessary to treat or prevent imminent or life-threatening deterioration of the following conditions: airway compromise. Critical care was time spent personally by me on the following activities:Ordering and review of radiographic studies, ordering and review of laboratory studies, re-evaluation of patient's condition, review of old charts, examination of patient, discussions with primary provider and discussions with consultants Mumps virus antibody, IgM (03/18/2019 2:22 PM CDT) Mumps Ab, IgM 0.15 <=0.79 IV [facility] Comment: INTERPRETIVE INFORMATION: Mumps Virus Antibody, IgM 0.79 IV or less:Negative - No significant level of detectable IgM antibody to mumps virus. 0.80 - 1.20 IV: Equivocal - Borderline levels of IgM antibody to mumps virus. Repeat testing in 10-14 days may be helpful. 1.21 IV or greater: Positive - Presence of IgM antibody to mumps virus detected, which may indicate a current or recent infection. However, low levels of IgM antibody may occasionally persist for more than 12 months post- infection or immunization. Performed by [employer], [address], [place] [id number] [email or web address], Saurabh Garcia MD - Lab. Director Specimen Serum Performing Organization Address [facility]/Zipcode Phone Number [facility] [address] [place] [address] [facility] [address] [place] [address] Mumps virus antibody, IgG (03/18/2019 2:22 PM CDT) Mumps Ab, IgG Positive (A) Negative [facility] Comment: HOSPITAL IgG antibody to Mumps detected. This may indicate that the patient was exposed to Mumps through infection or vaccination. Specimen Serum Performing Organization Address City/[facility] Phone Number [facility] DEPARTMENT OF PATHOLOGY AND [address] [place] [phone] Amylase level (03/18/2019 2:22 PM CDT) Amylase 113 (H) 28 - 100 U/L [facility] Specimen Plasma specimen Performing Organization Address City/[facility] Phone Number [facility] DEPARTMENT OF PATHOLOGY AND [address] [place] [address] [place] level (03/18/2019 2:22 PM CDT) [place] 0.08 (L) 0.60 - 1.20 mmol/L [facility] Specimen Serum Performing Organization Address [facility] Phone Number [facility] DEPARTMENT OF PATHOLOGY AND [address] [place] [phone] after 05/01/2018 Advance Directives For more information, please contact: [phone] Type Date 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
--- OUTSIDE RECORDS SUMMARY | 2019-05-02 16:16 | XMS REPORT ---
:1980 Author Organization [facility] Address [address] [place] [address] Dr. Portillo[address] [place] [id number] Care Team Providers Name Role Phone Unavailable Unavailable Unavailable Problems This patient has no known problems. Allergies, Adverse Reactions, Alerts This patient has no known allergies or adverse reactions. Medications This patient has no known medications.
[2019-05-02] MEDS ORDERED: NA CHLORIDE 0.9% 1,000 ML ONE (19:51)
--- NOTE | 2019-05-02 20:15 | RAD REPORT ---
EXAM DESCRIPTION: Pipe Single View05/02/2019 7:56 pm CLINICAL HISTORY: Chest pain COMPARISON: none FINDINGS: The lungs appear clear of acute infiltrate. The heart is normal size IMPRESSION: No acute abnormalities displayed
[2019-05-02 20:20] LABS: Absolute Lymphocytes (CBC) 2.8 K/uL (0.7-4.9); Hematocrit 40.8 % (36.0-45.0); Lymphocytes % 29.2 % (15.3-44.8); MPV 7.4 fL (7.6-11.3); RBC Red Blood Cell Count 4.16 M/uL (3.86-4.86)
[2019-05-02] MEDS ORDERED: FENTANYL CITR 100 MCG/2 ML ONE (20:20)
[2019-05-02 20:37] LABS: ALT/SGPT 38 U/L (12-78); AST/SGOT 14 U/L (15-37); Alkaline Phosphatase 77 U/L (45-117); BUN Blood Urea Nitrogen 9 mg/dL (7-18); Bicarbonate 25 mmol/L (21-32); Bilirubin Direct 0.2 mg/dL (0-0.2); Bilirubin Total 0.6 mg/dL (0.2-1.0); Creatine Phosphokinase 26 U/L (26-192); Glucose Level 86 mg/dL (74-106); Lipase 93 U/L (73-393); Potassium 3.5 mmol/L (3.5-5.1); Protein, Total 7.4 g/dL (6.4-8.2); Sodium Level 140 mmol/L (136-145); Troponin (Emerg Dept Use Only) < 0.02 ng/mL (0.0-0.045)
[2019-05-02 20:38] LABS: Protime INR 0.98
--- NOTE | 2019-05-03 00:46 | ER ---
Nurse's Notes [facility] Name: Marysol Salcido Age: 38 yrs Sex: Female : 1980 Arrival Date: 05/02/2019 Time: 16:12 Bed 28 Private MD: Jamie Meléndez Diagnosis: Enterocolitis due to Clostridium difficile;Dehydration Presentation: 05/02 16:55 Presenting complaint: Patient states: "I have C-Diff, now I have blurred vision, my aj1 stomach hurts, I feel sick to my stomach, and I can't stop going to the bathroom." Patient is currently taking Vancomycin PO for the C-Diff. States that she has had blurred vision off and on since Sunday. Reports fever, TMax 102 at home. Patient reports that she has not had fever since Sunday. Transition of care: patient was not received from another setting of care. Onset of symptoms was May 02, 2019. Risk Assessment: Do you want to hurt yourself or someone else? Patient reports no desire to harm self or others. Initial Sepsis Screen: Does the patient meet any 2 criteria? HR > 90 bpm. No. Patient's initial sepsis screen is negative. Does the patient have a suspected source of infection? Yes: Acute abdominal pain. Care prior to arrival: None. 16:55 Method Of Arrival: Ambulatory aj1 16:55 Acuity: STEPHANI 3 aj1 Triage Assessment: 16:58 General: Appears in no apparent distress. comfortable, Behavior is calm, cooperative, aj1 appropriate for age. Pain: Complains of pain in abdomen Pain currently is 9 out of 10 on a pain scale. Neuro: Level of Consciousness is awake, alert, obeys commands, Oriented to person, place, time, situation, Moves all extremities. Full function Gait is steady, Speech is normal, Facial symmetry appears normal. Cardiovascular: Patient's skin is warm and dry. Respiratory: Airway is patent Respiratory effort is even, unlabored, Respiratory pattern is regular, symmetrical. GI: Reports diarrhea. 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 - Ebola Screening: : Patient denies travel to an Ebola-affected area in the 21 days before illness onset. - Social history:: Smoking status: unknown. Screenin:13 Abuse screen: Denies threats or abuse. Nutritional screening: No deficits noted. tr5 Tuberculosis screening: No symptoms or risk factors identified. Fall Risk None identified. Assessment: 20:29 General: Appears in no apparent distress. Behavior is calm, cooperative, appropriate tr5 for age. Pain: Complains of pain in abdomen Pain does not radiate. Pain currently is 7 out of 10 on a pain scale. Quality of pain is described as crampy. Neuro: Level of Consciousness is awake, alert, obeys commands, Oriented to person, place, time, Mask Design Engineer are equal bilaterally Moves all extremities. Cardiovascular: Heart tones present Capillary refill < 3 seconds Pulses are all present. Edema is absent. Respiratory: Airway is patent Respiratory effort is even, unlabored, Respiratory pattern is regular, symmetrical. GI: Bowel sounds present X 4 quads. Abd is soft X 4 quads Reports lower abdominal pain. : No signs and/or symptoms were reported regarding the genitourinary system. EENT: No signs and/or symptoms were reported regarding the EENT system. Derm: No signs and/or symptoms reported regarding the dermatologic system. Musculoskeletal: No signs and/or symptoms reported regarding the musculoskeletal system. 21:30 Reassessment: Patient and/or family updated on plan of care and expected duration. Pain tr5 level reassessed. Patient is alert, oriented x 3, equal unlabored respirations, skin warm/dry/pink. 22:30 Reassessment: Patient appears in no apparent distress at this time. Patient and/or tr5 family updated on plan of care and expected duration. Pain level reassessed. Patient states feeling better. 23:22 Reassessment: Patient appears in no apparent distress at this time. No changes from tr5 previously documented assessment. Patient and/or family updated on plan of care and expected duration. Pain level reassessed. 05/03 00:30 Reassessment: Patient appears in no apparent distress at this time. No changes from wh previously documented assessment. Patient and/or family updated on plan of care and expected duration. Pain level reassessed. Patient is alert, oriented x 3, equal unlabored respirations, skin warm/dry/pink. Patient denies pain at this time. Patient states feeling better. 01:48 Reassessment: Patient appears in no apparent distress at this time. No changes from previously documented assessment. Patient and/or family updated on plan of care and expected duration. Pain level reassessed. Patient is alert, oriented x 3, equal unlabored respirations, skin warm/dry/pink. Patient denies pain at this time. Patient states feeling better. Vital Signs: 05/02 16:58 BP 146 / 71; Pulse 93; Resp 18; Temp 97.2; Pulse Ox 97% on R/A; Weight 81.65 kg (R); aj1 Height 5 ft. 2 in. (157.48 cm) (R); 20:15 BP 136 / 75; Pulse 88; Resp 16; Pulse Ox 100% on R/A; tr5 21:30 BP 128 / 76; Pulse 78; Resp 16; Pulse Ox 100% on R/A; tr5 22:30 BP 125 / 70; Pulse 70; Resp 16; Pulse Ox 100% on R/A; tr5 23:24 BP 128 / 65; Pulse 66; Resp 15; Pulse Ox 99% on R/A; tr5 05/03 00:30 BP 102 / 74; Pulse 69; Resp 18; Pulse Ox 98% on R/A; 01:30 BP 121 / 78; Pulse 65; Resp 18; Pulse Ox 100% ; 05/02 16:58 Body Mass Index 32.92 (81.65 kg, 157.48 cm) [facility] ED Course: 05/02 16:12 Patient arrived in ED. as 16:13 Jamie Meléndez MD is Private Physician. as 16:57 Triage completed. aj1 16:58 Arm band placed on Patient placed in waiting room, Patient notified of wait time. aj1 19:06 Haroon Knapp MD is Attending Physician. gs 19:11 Naveen Jj, JEAN MARIE is Primary Nurse. tr5 19:13 Call light in reach. Side rails up X 1. tr5 19:50 Inserted saline lock: 20 gauge in left antecubital area, using aseptic technique. tr5 20:00 Chest Single View XRAY In Process Unspecified. EDMS 20:00 Initial lab(s) drawn, by me, sent to lab. First set of blood cultures drawn. tr5 20:20 EKG done, by ED staff. tr5 20:41 Notified ED physician of a critical lab result(s). Lactic acid 2.3. tr5 20:45 Second set of blood cultures drawn. tr5 05/03 01:49 No provider procedures requiring assistance completed. IV discontinued, intact, bleeding controlled, No redness/swelling at site. Administered Medications: 05/02 20:14 Drug: NS 0.9% 1000 ml Route: IV; Rate: 1 bolus; Site: left antecubital; tr5 23:27 Follow up: Response: No adverse reaction; IV Status: Completed infusion; IV Intake: tr5 1000ml 20:27 Drug: fentaNYL (PF) 25 mcg {Note: RASS:0.} Route: IVP; Site: left antecubital; tr5 23:29 Follow up: Response: Pain is decreased tr5 05/03 00:30 Drug: NS 0.9% 1000 ml Route: IV; Rate: 1 bolus; Site: left antecubital; 01:43 Follow up: Response: No adverse reaction; IV Status: Completed infusion Point of Care Testing: Blood Glucose: 05/02 20:28 Blood Glucose: 94 mg/dL; tr5 Ranges: Intake: 23:27 IV: 1000ml; Total: 1000ml. tr5 Outcome: 05/03 00:44 Discharge ordered by . 01:49 Discharged to home ambulatory. 01:49 Condition: good 01:49 Discharge instructions given to patient, Instructed on discharge instructions, follow up and referral plans. medication usage, POC Dehydration and CDiff Demonstrated understanding of instructions, follow-up care, medications, POC Prescriptions given X 1. 01:50 Patient left the ED. Signatures: Dispatcher [employer] EDWV Isi Simeon RN RN ajTracie Sams Winsy Haroon Knapp MD MD gs Rodriguez, Tommie, RN RN tr5 Corrections: (The following items were deleted from the chart) 05/02 23:39 20:27 fentaNYL (PF) 25 mcg IVP in left antecubital tr5 tr5
--- NOTE | 2019-05-03 00:47 | EDPHYS ---
Physician Documentation [facility] Name: Marysol Salcido Age: 38 yrs Sex: Female : 1980 Arrival Date: 05/02/2019 Time: 16:12 Bed 28 Private MD: Jamie Meléndez ED Physician Haroon Knapp HPI: 05/03 00:42 This 38 yrs old Female presents to ER via Ambulatory with complaints of gs Diarrhea. 00:42 The patient presents to the emergency department with vomiting, diarrhea. Onset: The gs symptoms/episode began/occurred 2 day(s) ago. Possible causes: flare up of bowel problem, dx with cdiff. The symptoms are aggravated by nothing. The symptoms are alleviated by nothing. Associated signs and symptoms: Pertinent negatives: fever. Severity of symptoms: At their worst the symptoms were severe in the emergency department the symptoms have improved mildly. The patient has not experienced similar symptoms in the past. The patient has been recently seen by a physician: the patient's primary care provider, with similar presenting complaints. 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 - Ebola Screening: : Patient denies travel to an Ebola-affected area in the 21 days before illness onset. - Social history:: Smoking status: unknown. ROS: 05/03 00:42 All other systems are negative. gs Exam: 00:42 Head/Face: Normocephalic, atraumatic. Eyes: Pupils equal round and reactive to light, gs extra-ocular motions intact. Lids and lashes normal. Conjunctiva and sclera are non-icteric and not injected. Cornea within normal limits. Periorbital areas with no swelling, redness, or edema. ENT: Nares patent. No nasal discharge, no septal abnormalities noted. Tympanic membranes are normal and external auditory canals are clear. Oropharynx with no redness, swelling, or masses, exudates, or evidence of obstruction, uvula midline. Mucous membranes moist. Neck: Trachea midline, no thyromegaly or masses palpated, and no cervical lymphadenopathy. Supple, full range of motion without nuchal rigidity, or vertebral point tenderness. No Meningismus. Chest/axilla: Normal chest wall appearance and motion. Nontender with no deformity. No lesions are appreciated. Cardiovascular: Regular rate and rhythm with a normal S1 and S2. No gallops, murmurs, or rubs. Normal PMI, no JVD. No pulse deficits. Respiratory: Lungs have equal breath sounds bilaterally, clear to auscultation and percussion. No rales, rhonchi or wheezes noted. No increased work of breathing, no retractions or nasal flaring. Back: No spinal tenderness. No costovertebral tenderness. Full range of motion. Skin: Warm, dry with normal turgor. Normal color with no rashes, no lesions, and no evidence of cellulitis. MS/ Extremity: Pulses equal, no cyanosis. Neurovascular intact. Full, normal range of motion. Neuro: Awake and alert, GCS 15, oriented to person, place, time, and situation. Cranial nerves II-XII grossly intact. Motor strength 5/5 in all extremities. Sensory grossly intact. Cerebellar exam normal. Normal gait. 00:42 Constitutional: The patient appears alert, awake, uncomfortable. 00:42 Abdomen/GI: Palpation: mild abdominal tenderness, in all quadrants, rebound tenderness, is not appreciated. Vital Signs: 05/02 16:58 BP 146 / 71; Pulse 93; Resp 18; Temp 97.2; Pulse Ox 97% on R/A; Weight 81.65 kg (R); aj1 Height 5 ft. 2 in. (157.48 cm) (R); 20:15 BP 136 / 75; Pulse 88; Resp 16; Pulse Ox 100% on R/A; tr5 21:30 BP 128 / 76; Pulse 78; Resp 16; Pulse Ox 100% on R/A; tr5 22:30 BP 125 / 70; Pulse 70; Resp 16; Pulse Ox 100% on R/A; tr5 23:24 BP 128 / 65; Pulse 66; Resp 15; Pulse Ox 99% on R/A; tr5 05/03 00:30 BP 102 / 74; Pulse 69; Resp 18; Pulse Ox 98% on R/A; 01:30 BP 121 / 78; Pulse 65; Resp 18; Pulse Ox 100% ; 05/02 16:58 Body Mass Index 32.92 (81.65 kg, 157.48 cm) aj1 MDM: 05/02 19:29 Patient medically screened. 05/03 00:42 Differential diagnosis: gastroenteritis, dehydration,sepsis. Data reviewed: vital gs signs, nurses notes, lab test result(s). Counseling: I had a detailed discussion with the patient and/or guardian regarding: the historical points, exam findings, and any diagnostic results supporting the discharge/admit diagnosis, lab results, the need for outpatient follow up. Response to treatment: the patient's symptoms have markedly improved after treatment, patient is well hydrated. and as a result, I will discharge patient. 00:45 Response to treatment: the patient's condition has returned to base line. 05/02 19:17 Order name: Basic Metabolic Panel; Complete Time: 23:24 05/02 19:17 Order name: Blood Culture Adult (2) 05/02 19:17 Order name: CBC with Diff; Complete Time: 23:24 05/02 19:17 Order name: CPK; Complete Time: 23:24 05/02 19:17 Order name: Lactate; Complete Time: 23:24 05/02 19:17 Order name: LFT's; Complete Time: 23:24 05/02 19:17 Order name: Lipase; Complete Time: 23:24 05/02 19:17 Order name: Procalcitonin; Complete Time: 23:24 05/02 19:17 Order name: Protime (+inr); Complete Time: 23:24 05/02 19:17 Order name: Troponin (emerg Dept Use Only); Complete Time: 23:24 05/02 19:17 Order name: Chest Single View XRAY; Complete Time: 20:25 05/02 23:44 Order name: Lactate Sepsis 2 HR Follow-up; Complete Time: 00:10 EDMS 05/02 19:17 Order name: Accucheck; Complete Time: 20:27 05/02 19:17 Order name: Cardiac monitoring; Complete Time: 20:14 05/02 19:17 Order name: EKG - Nurse/Tech; Complete Time: 20:27 05/02 19:17 Order name: IV Saline Lock - Large Bore; Complete Time: 20:14 05/02 19:17 Order name: Labs collected and sent; Complete Time: 20:14 05/02 19:17 Order name: O2 Per Protocol; Complete Time: 20:14 05/02 19:17 Order name: O2 Sat Monitoring; Complete Time: 20:14 Administered Medications: 05/02 20:14 Drug: NS 0.9% 1000 ml Route: IV; Rate: 1 bolus; Site: left antecubital; tr5 23:27 Follow up: Response: No adverse reaction; IV Status: Completed infusion; IV Intake: tr5 1000ml 20:27 Drug: fentaNYL (PF) 25 mcg {Note: RASS:0.} Route: IVP; Site: left antecubital; tr5 23:29 Follow up: Response: Pain is decreased tr 05/03 00:30 Drug: NS 0.9% 1000 ml Route: IV; Rate: 1 bolus; Site: left antecubital; 01:43 Follow up: Response: No adverse reaction; IV Status: Completed infusion Point of Care Testing: Blood Glucose: 05/02 20:28 Blood Glucose: 94 mg/dL; tr5 Ranges: Critical Glucose Levels:Adult <50 mg/dl or >400 mg/dl <40 mg/dl or >180 mg/dl Disposition: 05/03/19 00:44 Discharged to Home. Impression: Enterocolitis due to Clostridium difficile, Dehydration. - Condition is Stable. - Discharge Instructions: Dehydration, Adult, Clostridium Difficile Infection. - Prescriptions for Zofran 4 mg Oral Tablet - take 1 tablet by ORAL route every 12 hours As needed; 10 tablet. - Medication Reconciliation Form, Thank You Letter, Antibiotic Education, Prescription Opioid Use form. - Follow up: Private Physician; When: 2 - 3 days; Reason: Re-evaluation by your physician. Signatures: Dispatcher [employer] Isi Edwards RN RN ajCyrus Trujillo Haroon Knapp MD MD gs Rodriguez, Tommie, RN RN tr5 Corrections: (The following items were deleted from the chart) 05/03 01:50 00:44 05/03/2019 00:44 Discharged to Home. Impression: Enterocolitis due to Clostridium wh difficile; Dehydration. Condition is Stable. Forms are Medication Reconciliation Form, Thank You Letter, Antibiotic Education, Prescription Opioid Use. Follow up: Private Physician; When: 2 - 3 days; Reason: Re-evaluation by your physician. gs
[2019-05-03 02:51] VITALS: TEMP 97.2
[2019-05-03 03:03] VITALS: BP 121/78; O2SAT 100
--- NOTE | 2019-05-05 16:59 | EKG ---
Test Date: 2019-05-02 Test Time: 20:22:54 Transitional Care Nurse: TR MEASUREMENT RESULTS: Intervals: Rate: 78 LA: 138 QRSD: 72 QT: 408 QTc: 465 [place]: P: 66 LA: 138 QRS: 46 T: 31 INTERPRETIVE STATEMENTS: Normal sinus rhythm Normal ECG No previous ECG available for comparison Electronically Signed On 05-05-19 16:55:44 CDT by Jose Robetro Espinal
== END 2019-05-03 01:50 | disposition home or self-care (01) ==
LOC: ER 16:12
DX: A04.72 Enterocolitis due to Clostridium difficile, not specified as recurrent (principal); E86.0 Dehydration; E11.9 Type 2 diabetes mellitus without complications; I10 Essential (primary) hypertension; F31.9 Bipolar disorder, unspecified; Z88.6 Allergy status to analgesic agent
CPT/HCPCS: 96361; 93005; 87040 ×2; 85025; 80048; 36415; 82550; 85610; 80076; 83605 ×2; 84484; 83690; 84145; 71045; 96374; 99284; J3010; J7030